=== PATIENT | female | born 1950 | race Caucasian/White ===

== ENCOUNTER 2018-12-01 12:47 | Emergency (ER) | payer MEDICARE, OTHER ==
[2018-12-01 12:58] VITALS: BMI 33.6
--- NOTE | 2018-12-01 13:54 | PDOC ---
History of Present Illness - General Chief Complaint: Headache Stated Complaint: SIU/High sugar/back pain Time Seen by Provider: 12/01/18 13:54 - History of Present Illness Initial Comments: 12/01/18 15:28 68F with h/o HTN, HLD, DM, left renal cancer s/p left nephrectomy, fibromyalgia (off librium), CO and stroke, presenting to the ED for 3 days of 10/10 frontal+ occipital headache associated with photophobia and blurry vision, generalized body pain, and dysuria. Daughter states that she also had elevated blood sugar 2 days ago (~300) down to ~138 today. The headache is not getting better with time. She took 2 Tylenol last night at 9pm because she can't have any NSAIDS due to her one kidney and her age. Patient is very agitated and is covering her eyes with a shirt. No fever, sob, abdominal pain, diarrhea or constipation. Past History - Past Medical History Allergies/Adverse Reactions: Allergies Allergy/AdvReac Type Severity Reaction Status Date / Time naproxen [From Naprosyn] Allergy Intermediate Rash Verified 12/01/18 16:52 morphine AdvReac Intermediate Vomiting Verified 12/01/18 16:52 Home Medications: Ambulatory Orders Unobtainable 12/01/18 Anemia: No Asthma: No Cancer: No Cardiac Disorders: Yes CVA: Yes (2003,2005) COPD: No CHF: No Dementia: No Diabetes: Yes GI Disorders: Yes (GERD) Disorders: No HTN: Yes Hypercholesterolemia: Yes Liver Disease: No Psychiatric Problems: Yes (ANXIETY) Seizures: No Thyroid Disease: No - Surgical History Abdominal Surgery: Yes (LT.KIDNEY REMOVAL, PT ONLY HAS 1 WORKING KIDNEY) Appendectomy: No Cardiac Surgery: No Cholecystectomy: Yes Lung Surgery: No Neurologic Surgery: No Orthopedic Surgery: No - Immunization History Immunization Up to Date: No - Suicide/Smoking/Psychosocial Hx Smoking History: Never smoked Have you smoked in the past 12 months: No Information on smoking cessation initiated: No Hx Alcohol Use: No Drug/Substance Use Hx: No Substance Use Type: None Hx Substance Use Treatment: No Review of Systems - Review of Systems Able to Perform ROS?: Yes Is the patient limited Eritrean proficient: No Constitutional: No: Symptoms Reported HEENTM: Yes: See HPI Respiratory: No: Symptoms reported Cardiac (ROS): No: Symptoms Reported ABD/GI: No: Symptoms Reported : No: Symptoms Reported Musculoskeletal: Yes: See HPI Integumentary: No: Symptoms Reported Neurological: No: Symptoms reported All Other Systems: Reviewed and Negative *Physical Exam - Vital Signs Last Vital Signs Temp Pulse Resp BP Pulse Ox 98.1 F 72 16 152/66 99 12/01/18 12:56 12/01/18 12:56 12/01/18 12:56 12/01/18 12:56 12/01/18 12:56 - Physical Exam General Appearance: Yes: Nourished, Appropriately Dressed. No: Apparent Distress HEENT: positive: EOMI, UCHE, Normal ENT Inspection Respiratory/Chest: positive: Chest Tender (mild diffuse), Lungs Clear, Normal Breath Sounds. negative: Respiratory Distress Cardiovascular: positive: Regular Rhythm, Regular Rate, S1, S2 Gastrointestinal/Abdominal: positive: Normal Bowel Sounds, Flat, Soft. negative : Tender Musculoskeletal: positive: Normal Inspection, Other (diffuse pain on palpation) Integumentary: positive: Normal Color, Dry, Warm Neurologic: positive: Fully Oriented, Alert. negative: Normal Mood/Affect ( looking very anxious ) ED Treatment Course - LABORATORY CBC & Chemistry Diagram: 12/01/18 14:20 12/01/18 14:20 Medical Decision Making - Medical Decision Making 12/01/18 16:05 68F with h/o HTN, HLD, DM, left renal cancer s/p left nephrectomy, fibromyalgia (off librium), CO and stroke, presenting to the ED for 3 days of 10/10 frontal+ occipital headache associated with photophobia and blurry vision, generalized body pain, and dysuria. Need to r/o subarachnoid bleed. If CT negative, will need to convince patient to get LP due to elevated creatine level and only one kidney to spare. Other causes of her headache can be migraine, cluster headache. Giving Tylenol and O2 oxygen. Ct head pending,. 12/01/18 17:[address] negative. Talked to patient about the need to do a lumbar puncture to fully rule out subarachnoid bleed. Patient accepted Lumbar puncture procedure. CSF obtained and running. 12/01/18 19:12 Pending CSF. Patient signed out to Dr. Pierre *DC/Admit/Observation/Transfer Diagnosis at time of Disposition: Headache - Discharge Dispostion Condition at time of disposition: Stable - Referrals Referrals: Maria Eugenia Guillory MD [Primary Care Provider] - - Patient Instructions Printed Discharge Instructions: DI for Migraine Additional Instructions: Come back to the emergency department for any new, worsening or concerning symptoms. Follow up with your primary care provider Maria Eugenia Alvarenga. - Post Discharge Activity
[2018-12-01] MEDS ORDERED: ACETAMINOPHEN 1000 MG/100 ML VIAL (NON FORMULARY) IVPB ONE (14:15)
[2018-12-01] MEDS ORDERED: ACETAMINOPHEN INJECTION 100 ML IVPB ONE (14:31)
[2018-12-01 14:54] LABS: HEMATOCRIT 37.9 % (32.4-45.2); HEMOGLOBIN 12.3 GM/dL (10.7-15.3); LYMPH % 32.9 % (8-40); MCH 26.4 pg (25.7-33.7); MCHC 32.6 g/dl (32.0-36.0); MEAN CELL VOLUME 80.9 fl (80-96); MEAN PLT VOLUME 7.2 fl (7.5-11.1); MONO % 6.5 % (3.8-10.2); NEUT % 58.6 % (42.8-82.8); PLATELET COUNT 194 K/MM3 (134-434); RBC 4.68 M/mm3 (3.60-5.2); RDW 14.6 % (11.6-15.6); WHITE BLOOD COUNT 5.2 K/mm3 (4.0-10.0)
[2018-12-01 15:00] LABS: EPI CELLS 9.4 /HPF (0-5/HPF); HYALINE CASTS 14 /lpf (0-8); PH,URINE 7.5 (5.0-8.0); URINE APPEARANCE CLEAR; URINE BACTERIA 1158.9 /hpf (NEGATIVE); URINE BILIRUBIN NEGATIVE (NEGATIVE); URINE COLOR YELLOW; URINE GLUCOSE (UA) NEGATIVE (NEGATIVE); URINE KETONE NEGATIVE (NEGATIVE); URINE LEUK ESTERASE NEGATIVE (NEGATIVE); URINE NITRITE NEGATIVE (NEGATIVE); URINE PROTEIN 1+ (NEGATIVE); URINE RBC 1 /hpf (0-4); URINE UROBILINOGEN 0.2 mg/dL (0.2-1.0); URINE WBC 4 /hpf (0-5)
[2018-12-01 15:23] LABS: ALBUMIN 3.9 g/dl (3.4-5.0); BILIRUBIN,TOTAL 0.3 mg/dL (0.2-1); BLOOD UREA NITROGEN 18.5 mg/dL (7-18); CALCIUM 9.6 mg/dL (8.5-10.1); CREATININE 1.4 mg/dL (0.55-1.3); POTASSIUM 4.5 mmol/L (3.5-5.1); TOT PROT 8.2 g/dl (6.4-8.2)
--- NOTE | 2018-12-01 15:42 | PDOC ---
Documentation entered by Poppy Benedict SCRIBE, acting as scribe for Azalea Bose MD. Azalea Bose MD: This documentation has been prepared by the Jak pierce Brenda, SCRIBE, under my direction and personally reviewed by me in its entirety. I confirm that the documentation accurately reflects all work, treatment, procedures, and medical decision making performed by me. Attending Attestation - Resident Resident Name: Carlitos Watkins - HPI HPI: 12/01/18 15:01 The patient is a 68 year old female, with a significant PMH of anxiety, hypertension, hypercholesterolemia and diabetes, who presents to the emergency department with 3 days of a strong headache. The patient states that the headache has been progressively worsening for 3 days, with no alleviation. The patient reports having an episode of vomiting yesterday after eating soup, accompanied by a subjective fever. The patient denies chest pain, shortness of breath, headache and dizziness. Denies diarrhea and constipation. Allergies: NKA Past surgical history: Cholecystectomy, Nephrectomy Social history: Non smoker PCP: Dr. Jackie Barriga - Physicial Exam PE: 12/01/18 15:01 GENERAL: +Shielding eyes from light. Awake, alert, and fully oriented. HEAD: No signs of trauma EYES: PERRLA, EOMI, sclera anicteric, conjunctiva clear ENT: Auricles normal inspection, hearing grossly normal, nares patent, oropharynx clear without exudates. Moist mucosa NECK: Normal ROM, supple, no lymphadenopathy, JVD, or masses LUNGS: Breath sounds equal, clear to auscultation bilaterally. No wheezes, and no crackles HEART: Regular rate and rhythm, normal S1 and S2, no murmurs, rubs or gallops ABDOMEN: Soft, nontender, normoactive bowel sounds. No guarding, no rebound. No masses EXTREMITIES: Normal range of motion, no edema. No clubbing or cyanosis. No cords, erythema, or tenderness NEUROLOGICAL: Cranial nerves II through XII grossly intact. Normal speech, normal gait SKIN: Warm, Dry, normal turgor, no rashes or lesions noted. - Medical Decision Making 12/01/18 15:31 Pt presents to the ED complaining of acute headache that has been persistent for the last three days. Remote history of migraines, but has not had one for many years. Given her age and the persistence of her headache, subarachnoid is in the differential. Will check CT Head and consider LP if CT is negative. 12/01/18 15:37 12/01/18 15:38
[2018-12-01] MEDS ORDERED: METOCLOPRAMIDE HCL INJECTION 10 MG/2 ML VIAL IVPUSH ONE (16:39)
[2018-12-01] MEDS ORDERED: METOCLOPRAMIDE HCL INJECTION 10 MG/2 ML VIAL ONE (17:02)
--- NOTE | 2018-12-01 17:06 | PDOC ---
*Physical Exam - Vital Signs Last Vital Signs Temp Pulse Resp BP Pulse Ox 98.1 F 72 16 152/66 99 12/01/18 12:56 12/01/18 12:56 12/01/18 12:56 12/01/18 12:56 12/01/18 12:56 ED Treatment Course - LABORATORY CBC & Chemistry Diagram: 12/01/18 14:20 12/01/18 14:20 - ADDITIONAL ORDERS Additional order review: Laboratory Results 12/01/18 12/01/18 14:20 14:20 Sodium 137 Potassium 4.5 Chloride 105 Carbon Dioxide 23 Anion Gap 9 BUN 18.5 H Creatinine 1.4 H Est GFR (CKD-EPI)AfAm 44.01 Est GFR (CKD-EPI)NonAf 37.97 Random Glucose 134 H Calcium 9.6 Total Bilirubin 0.3 AST 15 ALT 17 Alkaline Phosphatase 53 Total Protein 8.2 Albumin 3.9 Urine Color Yellow Urine Appearance Clear Urine pH 7.5 D Ur Specific [place] 1.016 Urine Protein 1+ H Urine Glucose (UA) Negative Urine Ketones Negative Urine Blood Negative Urine Nitrite Negative Urine Bilirubin Negative Urine Urobilinogen 0.2 Ur Leukocyte Esterase Negative Urine WBC (Auto) 4 Urine RBC (Auto) 1 Urine Casts (Auto) 14 U Pathogenic Cast Auto None seen U Epithel Cells (Auto) 9.4 Urine Bacteria (Auto) 1158.9 12/01/18 14:20 RBC 4.68 MCV 80.9 MCHC 32.6 RDW 14.6 MPV 7.2 L Neutrophils % 58.6 Lymphocytes % 32.9 D Monocytes % 6.5 Eosinophils % 1.0 Basophils % 1.0 - Medications Given in the ED: ED Medications Discontinued Medications Generic Name Dose Route Start Last Admin Trade Name Mansi PRN Reason Stop Dose Admin Acetaminophen 1,000 mg 12/01/18 14:15 12/01/18 14:42 Ofirmev Injection - IVPB 12/01/18 14:16 1,000 mg ONCE ONE Administration Medical Decision Making - Medical Decision Making 12/01/18 17:05 pt signed out at 5pm from Dr Bose pending reeval for headache. CT head neg for CONTRACT RECRUITER pathology. given headache, r/o SAH with LP. Cr 1.4, solitary kidney, risk of nephrotoxicity, no CTA to be done. LP with resident under my supervision. successful attempt by me, see procedure note - clear and colorless after tube 2. LP results with 200 WBC and RBC 5, not significant for SAH. no e/o infection on CSF study. lie flat for 2 hours, Given IVF to prevent spinal hypotension. glucose normal on check, able to get up and ambulate SIU improved instructions, supportive care, PCP followup and return precautions neuro followup given as well for management of SIU 12/01/18 19:41 12/01/18 19:43 12/01/18 19:43 12/01/18 20:46 *DC/Admit/Observation/Transfer Diagnosis at time of Disposition: Headache - Discharge Dispostion Disposition: HOME Condition at time of disposition: Stable Decision to Admit order: No - Referrals Referrals: Chet Scherer MD [Staff Physician] - Maria Eugenia Guillory MD [Primary Care Provider] - Eduardo Garcia MD [Staff Physician] - - Patient Instructions Printed Discharge Instructions: DI for Migraine, DI for Headache, DI for Post- Spinal Puncture Headache Additional Instructions: We have provided a referral to a neurologist. Please make an appointment for evaluation of your headaches. stay well hydrated tylenol for headache as needed Come back to the emergency department for any new, worsening or concerning symptoms. Return if worsening symptoms including fevers, headache, vomiting, visual or hearing disturbances, abdominal pain, chest pain, shortness of breath , syncope, dehydration, inability to take things by mouth/vomiting, altered mental status, or worsening concerning symptoms. Follow up with your primary care provider Maria Eugenia Guillory. neurologists referrals given as well. Hemos proporcionado peggy referencia a un neurlogo. Por favor corrine peggy lauryn para la evaluacin de denise todd de april. mantenerse abhi hidratado Tylenol para el dolor de april segn sea necesario Regrese al departamento de emergencias para detectar cualquier sntoma nuevo, que empeore o que se relacione con ellos. Regrese si los sntomas empeoran, incluyendo fiebre, dolor de april, vmitos, trastornos visuales o auditivos, dolor abdominal, dolor de pecho, falta de aliento, sncope, deshidratacin, incapacidad para nj cosas por la boca / vmitos, alteracin del estado mental o empeoramiento de los sntomas. Corrine un seguimiento con nicholson proveedor de atencin primaria Maria Eugenia Guillory. Referencias neurolgicas dadas rehan. Print Language: BENGALI - Post Discharge Activity Procedures - Lumbar Puncture Indication: Subarachnoid Hem[place]age CT Scan: Yes (negative) Betadine Prep: Yes Position: Left lateral decubitus Site: L3-L4 Local Anesthesia: 1% Lidocaine with epi Volume(ml): 5 Lumbar Puncture Kit: Adult Needle Size(gauge): 20 Traumatic Tap: Yes Tubes Obtained: 4 Clear Fluid: Yes Complications: No Progress: 12/01/18 18:39 attempts by residents x 2, unsuccessful first attempt by me successful, uncomplicated. clear csf by tube 2, 3,4
[2018-12-01 19:34] LABS: CSF APPEARANCE CLEAR; CSF COLOR COLORLESS; CSF WBC 200
[2018-12-01] MEDS ORDERED: SODIUM CHLORIDE 0.9% 500 ML INFUS.BAG IV ONE (19:38)
[2018-12-01 20:02] LABS: BF GLUCOSE (CSF ONLY) 61 mg/dL (40-70)
--- NOTE | 2018-12-01 20:26 | PDOC ---
*Physical Exam - Vital Signs Last Vital Signs Temp Pulse Resp BP Pulse Ox 98.1 F 67 16 142/81 96 12/01/18 18:32 12/01/18 18:32 12/01/18 12:56 12/01/18 18:32 12/01/18 18:37 - Physical Exam Comments: 12/01/18 20:24 General Appearance: Yes: Nourished, Appropriately Dressed HEENT: positive: Normal Voice, Hearing Grossly Normal Neck: positive: Trachea midline, Supple Respiratory/Chest: positive: Lungs Clear, Normal Breath Sounds Cardiovascular: positive: S1, S2, Systolic Murmur Gastrointestinal/Abdominal: positive: Normal Bowel Sounds, Soft Extremity: positive: Normal Capillary Refill, Normal Inspection Integumentary: positive: Normal Color, Dry, Warm Neurologic: positive: Fully Oriented, Alert. negative: Confused, Disoriented ED Treatment Course - LABORATORY CBC & Chemistry Diagram: 12/01/18 14:20 12/01/18 14:20 - ADDITIONAL ORDERS Additional order review: Laboratory Results 12/01/18 12/01/18 12/01/18 18:30 14:20 14:20 Sodium 137 Potassium 4.5 Chloride 105 Carbon Dioxide 23 Anion Gap 9 BUN 18.5 H Creatinine 1.4 H Est GFR (CKD-EPI)AfAm 44.01 Est GFR (CKD-EPI)NonAf 37.97 Random Glucose 134 H Calcium 9.6 Total Bilirubin 0.3 AST 15 ALT 17 Alkaline Phosphatase 53 Total Protein 8.2 Albumin 3.9 Urine Color Yellow Urine Appearance Clear Urine pH 7.5 D Ur Specific [place] 1.016 Urine Protein 1+ H Urine Glucose (UA) Negative Urine Ketones Negative Urine Blood Negative Urine Nitrite Negative Urine Bilirubin Negative Urine Urobilinogen 0.2 Ur Leukocyte Esterase Negative Urine WBC (Auto) 4 Urine RBC (Auto) 1 Urine Casts (Auto) 14 U Pathogenic Cast Auto None seen U Epithel Cells (Auto) 9.4 Urine Bacteria (Auto) 1158.9 CSF Appearance Clear CSF Color Colorless CSF WBC 200 CSF RBC 5 CSF Neutrophils 0 CSF Lymphocytes 100 CSF Eosinophils No Result Required. CSF Basophils No Result Required. CSF Macrophages No Result Required. CSF Plasma Cells No Result Required. CSF Diff Comment No Result Required. CSF Comment CSF Glucose 61 CSF Total Protein 111 H 12/01/18 14:20 RBC 4.68 MCV 80.9 MCHC 32.6 RDW 14.6 MPV 7.2 L Neutrophils % 58.6 Lymphocytes % 32.9 D Monocytes % 6.5 Eosinophils % 1.0 Basophils % 1.0 - Medications Given in the ED: ED Medications Discontinued Medications Generic Name Dose Route Start Last Admin Trade Name Mansi PRN Reason Stop Dose Admin Acetaminophen 1,000 mg 12/01/18 14:15 12/01/18 14:42 Ofirmev Injection - IVPB 12/01/18 14:16 1,000 mg ONCE ONE Administration Metoclopramide HCl 10 mg 12/01/18 16:39 12/01/18 17:09 Reglan Injection - IVPUSH 12/01/18 16:40 10 mg ONCE ONE Administration Sodium Chloride 1,000 ml 12/01/18 19:38 12/01/18 20:16 Normal Saline - IV 12/01/18 19:39 1,000 ml ONCE ONE Administration Medical Decision Making - Medical Decision Making 12/01/18 20:27 Patient signed out by Dr. 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 Remote h/o migraines Head CT negative, LP for SAH - results pending. Patient reassessed @ bedside, symptomatically improved s/p headache cocktail IV fluids, supine s/p LP 12/01/18 20:39 LP 5 RBC, 200 WBC - unlikely SAH Patient to be discharged home with supportive care and referral to neurology for evaluation of headaches. Clinical Impression: SIU, possibly migraine I discussed the physical exam findings, ancillary test results and final diagnoses with the patient. I answered all of the patient's questions. The patient was satisfied with the care received and felt comfortable with the discharge plan and treatment plan. The patient will return to the Emergency Department with any new, persistent or worsening symptoms. *DC/Admit/Observation/Transfer Diagnosis at time of Disposition: Headache - Discharge Dispostion Disposition: HOME Condition at time of disposition: Improved - Referrals Referrals: Eduardo Garcia MD [Staff Physician] - Chet Scherer MD [Staff Physician] - Maria Eugenia Guillory MD [Primary Care Provider] - - Patient Instructions Printed Discharge Instructions: DI for Migraine, DI for Post-Spinal Puncture Headache, DI for Headache Additional Instructions: Hemos proporcionado peggy referencia a un neurlogo o puede llamar a guzmán compaa de seguros para obtener peggy lista de mdicos. Por favor cody peggy lauryn para evaluar denise todd de april dentro de la prxima semana. Por favor cody un seguimiento con guzmán mdico de atencin primaria en los prximos 3 reis. Guzmán atencin no est completa hasta que lo evale un neurlogo y guzmán mdico de atencin primaria. Puede nj Motrin (hasta 3200 mg al da) cada 4-6 horas para el dolor de april radha la prxima semana Regrese al Departamento de Emergencias para cualquier sntoma nuevo / que empeora / relacionado. We have provided a referral to a neurologist or you can call your insurance company for a list of doctors. Please make an appointment for evaluation of your headaches within the next one week. Please follow-up with your primary care doctor in the next 3 days. Your care is not complete until you are evaluated by a neurologist and your primary care doctor. You can take Motrin (up to 3200 mg daily) every 4-6 hours for your headache for the next 1 week Return to the Emergency Department for any new/worsening/concerning symptoms. Print Language: TURKMEN - Post Discharge Activity
[2018-12-01 21:25] VITALS: TEMP 98.4
[2018-12-01 21:26] VITALS: BP 128/83; PULSE 73
--- NOTE | 2018-12-02 08:07 | EKG ---
Test Reason : Blood Pressure : / mmHG Vent. Rate : 062 BPM Atrial Rate : 062 BPM P-R Int : 172 ms QRS Dur : 082 ms QT Int : 446 ms P-R-T Axes : 050 -17 017 degrees QTc Int : 452 ms POOR DATA QUALITY, INTERPRETATION MAY BE ADVERSELY AFFECTED NORMAL SINUS RHYTHM POSSIBLE LEFT ATRIAL ENLARGEMENT LEFT VENTRICULAR HYPERTROPHY ABNORMAL ECG WHEN COMPARED WITH ECG OF 28-JAN-2015 15:41, NO SIGNIFICANT CHANGE WAS FOUND Confirmed by FLOR BURRIS MD ([id number]) on 12/02/2018 8:07:06 AM Referred By: Confirmed By:FLOR BURRIS MD
== END 2018-12-01 21:26 | disposition home or self-care (01) ==
LOC: JER 12:47
PROC: 009U3ZX Drainage of Spinal Canal, Percutaneous Approach, Diagnostic (ICD-10-PCS; principal; 2018-12-01)
PROC: 3E033NZ Introduction of Analgesics, Hypnotics, Sedatives into Peripheral Vein, Percutaneous Approach (ICD-10-PCS; 2018-12-01)
PROC: 3E033GC Introduction of Other Therapeutic Substance into Peripheral Vein, Percutaneous Approach (ICD-10-PCS; 2018-12-01)
DX: R51 Headache (principal); I25.10 Atherosclerotic heart disease of native coronary artery without angina pectoris; I11.0 Hypertensive heart disease with heart failure; I25.2 Old myocardial infarction; E11.9 Type 2 diabetes mellitus without complications; E78.5 Hyperlipidemia, unspecified; F41.9 Anxiety disorder, unspecified; Z86.73 Personal history of transient ischemic attack (TIA), and cerebral infarction without residual deficits; Z85.520 Personal history of malignant carcinoid tumor of kidney; Z90.5 Acquired absence of kidney
CPT/HCPCS: 36415; 62270; 70450-TC; 80053; 81003; 82945; 82962; 84157; 85025; 87070; 87086; 87205; 93005; 93010; 96374; 96375; 99283-25; J0131

== ENCOUNTER 2023-04-02 13:36 | Emergency (ER) | payer MEDICARE, OTHER ==
[2023-04-02 13:59] VITALS: BMI 31.1
[2023-04-02] MEDS ORDERED: DEXAMETHASONE SOD PHOSPHATE 10 MG/1 ML VIAL IM ONE (16:12)
[2023-04-02] MEDS ORDERED: ACETAMINOPHEN 500 MG TABLET (FP) PO ONE (16:12)
[2023-04-02] MEDS ORDERED: KETOROLAC TROMETHAMINE 15 MG/ML VIAL IM ONE (16:12)
[2023-04-02] MEDS ORDERED: ACETAMINOPHEN 500 MG TABLET (FP) ONE (16:23)
[2023-04-02] MEDS ORDERED: DEXAMETHASONE SOD PHOSPHATE 10 MG/1 ML VIAL ONE (16:23)
[2023-04-02 17:00] VITALS: BP 137/71; PULSE 66; RESP 20; TEMP 98.5
== END 2023-04-02 17:01 | disposition home or self-care (01) ==
LOC: JER 13:36
PROC: 3E023GC Introduction of Other Therapeutic Substance into Muscle, Percutaneous Approach (ICD-10-PCS; principal; 2023-04-02)
DX: M25.511 Pain in right shoulder (principal); M25.512 Pain in left shoulder; M25.521 Pain in right elbow; M25.522 Pain in left elbow; M06.9 Rheumatoid arthritis, unspecified
CPT/HCPCS: 82962; 99284-25; J1100

== ENCOUNTER 2023-07-03 09:37 | Observation (INO) | payer MEDICARE, OTHER ==
[2023-07-03 11:42] LABS: BASO % 0.8 % (0-2.0); HEMATOCRIT 35.2 % (32.4-45.2); LYMPH % 30.8 % (8-40); MCH 27.8 pg (25.7-33.7); MEAN CELL VOLUME 81.7 fl (80-96); MEAN PLT VOLUME 7.4 fl (7.5-11.1); MONO % 6.6 % (3.8-10.2); NEUT % 59.8 % (42.8-82.8); PLATELET COUNT 186 10^3/uL (134-434); RBC 4.31 M/mm3 (3.60-5.2); RDW 14.4 % (11.6-15.6); WHITE BLOOD COUNT 5.1 K/mm3 (4.0-10.0)
[2023-07-03 12:16] LABS: ALBUMIN 3.4 g/dl (3.4-5.0); BLOOD UREA NITROGEN 26.9 mg/dL (7-18); CALCIUM 9.6 mg/dL (8.5-10.1); MAGNESIUM 2.3 mg/dL (1.8-2.4); POTASSIUM 5.1 mmol/L (3.5-5.1)
[2023-07-03 12:18] LABS: CREATININE 1.6 mg/dL (0.55-1.3)
[2023-07-03 12:20] LABS: BILIRUBIN,TOTAL 0.3 mg/dL (0.2-1); TOT PROT 7.9 g/dl (6.4-8.2)
[2023-07-03 12:23] LABS: EPI CELLS 27 /uL (0-25.1); HYALINE CASTS 1 /uL (0-3.1); PH,URINE 5.5 (5.0-8.0); URINE APPEARANCE CLEAR; URINE BACTERIA 740 /uL (0-1359); URINE BILIRUBIN NEGATIVE (NEGATIVE); URINE COLOR YELLOW; URINE GLUCOSE (UA) NEGATIVE (NEGATIVE); URINE KETONE NEGATIVE (NEGATIVE); URINE LEUK ESTERASE TRACE (NEGATIVE); URINE NITRITE NEGATIVE (NEGATIVE); URINE PROTEIN NEGATIVE (NEGATIVE); URINE RBC 7 /uL (0-23.9); URINE WBC 30 /uL (0-25.8)
[2023-07-03 14:20] VITALS: BMI 32.2
[2023-07-04 09:16] LABS: BASO % 0.6 % (0-2.0); EOS % 2.2 % (0-4.5); HEMATOCRIT 36.5 % (32.4-45.2); HEMOGLOBIN 11.9 GM/dL (10.7-15.3); LYMPH % 35.3 % (8-40); MCHC 32.5 g/dl (32.0-36.0); MEAN PLT VOLUME 7.7 fl (7.5-11.1); MONO % 5.7 % (3.8-10.2); NEUT % 56.2 % (42.8-82.8); PLATELET COUNT 194 10^3/uL (134-434); RDW 14.5 % (11.6-15.6); WHITE BLOOD COUNT 5.6 K/mm3 (4.0-10.0)
[2023-07-04 09:21] LABS: POTASSIUM 4.3 mmol/L (3.5-5.1)
[2023-07-04 09:35] LABS: CALCIUM 8.6 mg/dL (8.5-10.1)
[2023-07-04 09:36] LABS: BLOOD UREA NITROGEN 27.8 mg/dL (7-18)
[2023-07-04 09:38] LABS: MAGNESIUM 2.1 mg/dL (1.8-2.4)
[2023-07-04 09:41] LABS: CREATININE 1.5 mg/dL (0.55-1.3); PHOSPHOROUS 3.5 mg/dL (2.5-4.9)
[2023-07-04 09:42] LABS: BILIRUBIN,TOTAL 0.3 mg/dL (0.2-1)
[2023-07-04 09:50] LABS: ALBUMIN 3.5 g/dl (3.4-5.0)
[2023-07-04 16:10] VITALS: BP 148/68; PULSE 64; RESP 18; TEMP 98
== END 2023-07-04 16:38 | disposition home or self-care (01) ==
LOC: JER 09:37 → JERBED 14:56 → INTOOBSV 14:56 → UNDOADMOB 14:56 → J5S 07-04 01:17 → JERBED 07-04 01:17 → J5S 07-04 10:08 → JERBED 07-04 10:08
PROVIDERS: ADMIT Internal Medicine; ATTEND Internal Medicine
DX: R76.8 Other specified abnormal immunological findings in serum (principal); K21.9 Gastro-esophageal reflux disease without esophagitis; Z90.49 Acquired absence of other specified parts of digestive tract; Z90.5 Acquired absence of kidney; E78.5 Hyperlipidemia, unspecified; E11.9 Type 2 diabetes mellitus without complications; M79.7 Fibromyalgia; I10 Essential (primary) hypertension; Z99.81 Dependence on supplemental oxygen; M06.9 Rheumatoid arthritis, unspecified; R91.1 Solitary pulmonary nodule; N17.9 Acute kidney failure, unspecified; Z88.5 Allergy status to narcotic agent
CPT/HCPCS: 36415; 71045-TC-FY; 71250-TC; 76775-TC; 80053; 81003; 82962; 83520; 83735; 84100; 85025; 86256; 87086; 93005; 93010; 99285-25; G0378

== ENCOUNTER 2024-05-09 12:54 | Observation (INO) | payer OTHER ==
[2024-05-09 13:13] VITALS: BMI 31.2
[2024-05-09] MEDS ORDERED: ACETAMINOPHEN INJECTION 100 ML ONE (14:14)
[2024-05-09] MEDS: ACETAMINOPHEN 1000 MG/100 ML BAG IVPB ONE (14:18)
[2024-05-09 14:21] LABS: BASO % 0.6 % (0-2.0); EOS % 1.4 % (0-4.5); HEMATOCRIT 38.8 % (32.4-45.2); HEMOGLOBIN 12.7 GM/dL (10.7-15.3); MCH 26.3 pg (25.7-33.7); MCHC 32.7 g/dl (32.0-36.0); MEAN CELL VOLUME 80.4 fl (80-96); MEAN PLT VOLUME 7.5 fl (7.5-11.1); MONO % 4.1 % (3.8-10.2); NEUT % 74.9 % (42.8-82.8); PLATELET COUNT 205 10^3/uL (134-434); RBC 4.83 M/mm3 (3.60-5.2); RDW 15.1 % (11.6-15.6); WHITE BLOOD COUNT 6.7 K/mm3 (4.0-10.0)
[2024-05-09 14:38] LABS: POTASSIUM 4.3 mmol/L (3.5-5.1)
[2024-05-09 14:39] LABS: CALCIUM 9.9 mg/dL (8.5-10.1)
[2024-05-09 14:40] LABS: ALBUMIN 3.7 g/dl (3.4-5.0); BLOOD UREA NITROGEN 30.3 mg/dL (7-18)
[2024-05-09 14:43] LABS: CREATININE 1.7 mg/dL (0.55-1.3)
[2024-05-09 14:45] LABS: BILIRUBIN,TOTAL 0.4 mg/dL (0.2-1); TOT PROT 8.4 g/dl (6.4-8.2)
[2024-05-09 14:57] LABS: ERYTHROCYTE SEDIMENTATION RATE 64 mm/hr (0-30)
[2024-05-09 15:35] LABS: HIV INTERPRETATION NEGATIVE (NEGATIVE)
[2024-05-09] MEDS: ASPIRIN 325 MG TABLET PO ONE (18:34)
[2024-05-09] MEDS: ALPRAZolam 1 MG TABLET PO PRN (19:00)
[2024-05-09] MEDS: INSULIN ASPART SLIDING SCALE (NOVOLOG) 1 VIAL SQ SCH (19:05)
[2024-05-09] MEDS: SODIUM CHLORIDE 1,000 ML IV SCH (19:40)
[2024-05-09] MEDS: ATORVASTATIN CA 20 MG TABLET (FP) PO SCH (21:49)
[2024-05-09] MEDS: HEPARIN NA (PORCINE) 5,000 UNITS/ML 1ML VIAL SQ SCH (21:49)
[2024-05-09] MEDS: ACETAMINOPHEN 1000 MG/100 ML BAG IVPB PRN (21:49)
[2024-05-09] MEDS: INSULIN (LEVEMIR) 100 UNITS/ML UNITS SQ SCH (21:50)
[2024-05-10 02:22] VITALS: RESP 18
[2024-05-10] MEDS: LEVOTHYROXINE NA 50 MCG TABLET (FP) PO SCH (06:19)
[2024-05-10 06:30] LABS: BASO % 0.6 % (0-2.0); EOS % 2.7 % (0-4.5); HEMATOCRIT 39.2 % (32.4-45.2); HEMOGLOBIN 12.6 GM/dL (10.7-15.3); LYMPH % 36.6 % (8-40); MCH 26.5 pg (25.7-33.7); MCHC 32.1 g/dl (32.0-36.0); MEAN CELL VOLUME 82.6 fl (80-96); MEAN PLT VOLUME 7.8 fl (7.5-11.1); MONO % 6.4 % (3.8-10.2); NEUT % 53.7 % (42.8-82.8); PLATELET COUNT 220 10^3/uL (134-434); RBC 4.75 M/mm3 (3.60-5.2); RDW 15.3 % (11.6-15.6); WHITE BLOOD COUNT 6.4 K/mm3 (4.0-10.0)
[2024-05-10 06:39] LABS: POTASSIUM 4.1 mmol/L (3.5-5.1)
[2024-05-10 06:42] LABS: ALBUMIN 3.6 g/dl (3.4-5.0); CALCIUM 9.3 mg/dL (8.5-10.1)
[2024-05-10 06:43] LABS: BLOOD UREA NITROGEN 28.6 mg/dL (7-18)
[2024-05-10 06:46] LABS: CREATININE 1.6 mg/dL (0.55-1.3)
[2024-05-10 06:47] LABS: BILIRUBIN,TOTAL 0.7 mg/dL (0.2-1); TOT PROT 8.1 g/dl (6.4-8.2)
[2024-05-10 10:26] VITALS: TEMP 97.7
[2024-05-10] MEDS: NEBIVOLOL 5 MG TABLET (FP) PO SCH (10:32)
[2024-05-10] MEDS: ASPIRIN COATED 81 MG TABLET.EC PO SCH (10:33)
[2024-05-10] MEDS: SERTRALINE HCL 50 MG TABLET (FP) PO SCH (10:33)
[2024-05-10] MEDS: PANTOPRAZOLE 20 MG TABLET PO SCH (10:33)
[2024-05-10 14:01] VITALS: BP 142/87; PULSE 70
== END 2024-05-10 18:31 | disposition home or self-care (01) ==
LOC: JER 12:54 → JERBED 15:46 → J4S 17:50
PROVIDERS: ADMIT Internal Medicine; ATTEND Internal Medicine
PROC: 3E033NZ Introduction of Analgesics, Hypnotics, Sedatives into Peripheral Vein, Percutaneous Approach (ICD-10-PCS; principal; 2024-05-09)
PROC: 3E013VG Introduction of Insulin into Subcutaneous Tissue, Percutaneous Approach (ICD-10-PCS; 2024-05-09)
DX: M79.7 Fibromyalgia (principal); I12.9 Hypertensive chronic kidney disease with stage 1 through stage 4 chronic kidney disease, or unspecified chronic kidney disease; I45.10 Unspecified right bundle-branch block; E11.22 Type 2 diabetes mellitus with diabetic chronic kidney disease; K52.9 Noninfective gastroenteritis and colitis, unspecified; R07.89 Other chest pain; E78.5 Hyperlipidemia, unspecified; R91.1 Solitary pulmonary nodule; N17.9 Acute kidney failure, unspecified; R94.31 Abnormal electrocardiogram [ECG] [EKG]; R79.89 Other specified abnormal findings of blood chemistry; M19.90 Unspecified osteoarthritis, unspecified site; Z90.49 Acquired absence of other specified parts of digestive tract; Z88.8 Allergy status to other drugs, medicaments and biological substances; Z88.5 Allergy status to narcotic agent; Z90.5 Acquired absence of kidney
CPT/HCPCS: 36415; 70450-TC; 71045-TC-FY; 80053; 82550; 82962; 84443; 84484; 85025; 85379; 85651; 86140; 86803; 87040; 87389; 93005; 93010; 96361; 96372; 96374; 96376; 99285-25; G0378; J0131; J1644

== ENCOUNTER 2024-11-19 13:07 | Observation (INO) | payer OTHER ==
[2024-11-19] MEDS ORDERED: ASPIRIN 325 MG TABLET ONE (13:36)
[2024-11-19] MEDS ORDERED: ACETAMINOPHEN INJECTION 100 ML ONE (13:36)
[2024-11-19] MEDS: ACETAMINOPHEN 1000 MG/100 ML BAG IVPB ONE (13:47)
[2024-11-19] MEDS: ASPIRIN 325 MG TABLET PO ONE (13:47)
[2024-11-19 13:51] LABS: ABSOLUTE IMMATURE GRANULOCYTES 0.03 x10^3/uL (0.0-0.031); BASOPHILS # 0.01 x10^3/uL (0.01-0.08); EOSINOPHILS # 0.07 x10^3/uL (0.04-0.36); HEMATOCRIT 39.5 % (34.1-44.9); HEMOGLOBIN 12.3 g/dL (11.2-15.7); MCHC 31.1 g/dl (32.2-35.5); MEAN CELL VOLUME 81.1 fl (79.4-94.8); MEAN PLT VOLUME 9.2 fl (9.4-12.3); MONOCYTE # 0.34 x10^3/uL (0.24-0.86); MONOCYTE % 4.8 % (4.7-12.5); PLATELET COUNT 240 x10^3/uL (182-369); RDW 15.2 % (12.4-16.6)
[2024-11-19 13:58] LABS: INR 1.4 (0.83-1.09); PROTHROMBIN TIME (PATIENT) 15.4 SEC (9.7-13.0)
[2024-11-19 14:01] LABS: ACTIVATED PTT 34.8 SECONDS (25.2-36.5)
[2024-11-19 14:21] LABS: POTASSIUM 4.5 mmol/L (3.5-5.1)
[2024-11-19 14:23] LABS: ALBUMIN 3.4 g/dl (3.4-5.0); BLOOD UREA NITROGEN 20.5 mg/dL (7-18); CALCIUM 9.3 mg/dL (8.5-10.1)
[2024-11-19 14:27] LABS: CREATININE 1.4 mg/dL (0.55-1.3)
[2024-11-19 14:28] LABS: BILIRUBIN,TOTAL 0.6 mg/dL (0.2-1); TOT PROT 8.4 g/dl (6.4-8.2)
[2024-11-19] MEDS: SODIUM CHLORIDE 0.9% 500 ML INFUS.BAG IV ONE (14:48)
[2024-11-19 22:24] VITALS: RESP 19; BMI 32.0
[2024-11-19] MEDS: APIXABAN 5 MG TABLET PO SCH (22:56)
[2024-11-20] MEDS: ACETAMINOPHEN 1000 MG/100 ML BAG IVPB PRN (03:26)
[2024-11-20] MEDS: LEVOTHYROXINE NA 75 MCG TABLET (FP) PO SCH (06:11)
[2024-11-20] MEDS ORDERED: LEVOTHYROXINE NA 50 MCG TABLET (FP) PO SCH (07:00)
[2024-11-20 08:40] LABS: ABSOLUTE IMMATURE GRANULOCYTES 0.02 x10^3/uL (0.0-0.031); BASOPHILS # 0.02 x10^3/uL (0.01-0.08); EOSINOPHIL % 1.3 % (0.7-5.8); EOSINOPHILS # 0.09 x10^3/uL (0.04-0.36); HEMATOCRIT 40.5 % (34.1-44.9); HEMOGLOBIN 12.3 g/dL (11.2-15.7); MCHC 30.4 g/dl (32.2-35.5); MEAN CELL VOLUME 82.2 fl (79.4-94.8); MONOCYTE # 0.33 x10^3/uL (0.24-0.86); MONOCYTE % 4.7 % (4.7-12.5); RDW 15.4 % (12.4-16.6)
[2024-11-20] MEDS: PANTOPRAZOLE 40 MG TABLET PO SCH (09:35)
[2024-11-20] MEDS: GABAPENTIN 300 MG CAPSULE PO SCH (09:35)
[2024-11-20] MEDS: SERTRALINE HCL 50 MG TABLET (FP) PO SCH (09:35)
[2024-11-20] MEDS: NEBIVOLOL 5 MG TABLET (FP) PO SCH (09:35)
[2024-11-20 11:18] LABS: ALBUMIN 3.3 g/dl (3.4-5.0); BILIRUBIN,TOTAL 0.8 mg/dL (0.2-1); BLOOD UREA NITROGEN 18.7 mg/dL (7-18); CALCIUM 9.4 mg/dL (8.5-10.1); CREATININE 1.1 mg/dL (0.55-1.3); POTASSIUM 4.1 mmol/L (3.5-5.1); TOT PROT 8.2 g/dl (6.4-8.2)
[2024-11-20 15:26] VITALS: BP 136/73; PULSE 69; TEMP 98.1
[2024-11-20 16:54] LABS: N-TERMINAL BNP 383.8 pg/ml (5-450)
[2024-11-20] MEDS ORDERED: ATORVASTATIN CA 20 MG TABLET (FP) PO SCH ×2 (22:00)
== END 2024-11-20 16:52 | disposition home or self-care (01) ==
LOC: JER 13:07 → JERBED 20:28 → J4W 21:51
PROVIDERS: ADMIT Internal Medicine; ATTEND Internal Medicine
PROC: 3E033NZ Introduction of Analgesics, Hypnotics, Sedatives into Peripheral Vein, Percutaneous Approach (ICD-10-PCS; principal; 2024-11-19)
PROC: 3E0337Z Introduction of Electrolytic and Water Balance Substance into Peripheral Vein, Percutaneous Approach (ICD-10-PCS; 2024-11-19)
DX: N18.9 Chronic kidney disease, unspecified (principal); I12.9 Hypertensive chronic kidney disease with stage 1 through stage 4 chronic kidney disease, or unspecified chronic kidney disease; I31.39 Other pericardial effusion (noninflammatory); K21.9 Gastro-esophageal reflux disease without esophagitis; E11.22 Type 2 diabetes mellitus with diabetic chronic kidney disease; Z86.711 Personal history of pulmonary embolism; R42 Dizziness and giddiness; F41.9 Anxiety disorder, unspecified; M79.7 Fibromyalgia; E78.5 Hyperlipidemia, unspecified; R07.1 Chest pain on breathing; Z90.5 Acquired absence of kidney; M06.9 Rheumatoid arthritis, unspecified; M19.90 Unspecified osteoarthritis, unspecified site
CPT/HCPCS: 36415; 70450-TC; 71045-TC-FY; 71275-TC; 80053; 80061; 82962; 83036; 83735; 83880; 84443; 84484; 85025; 85610; 85730; 86850; 86900; 86901; 93005; 93010; 96374; 96376; 99285-25; G0378

== ENCOUNTER 2024-11-24 17:50 | Inpatient (IN) | payer OTHER ==
[2024-11-24] MEDS ORDERED: ACETAMINOPHEN INJECTION 100 ML ONE (18:37)
[2024-11-24] MEDS: ACETAMINOPHEN 1000 MG/100 ML BAG IVPB ONE (18:55)
[2024-11-24] MEDS: LACTATED RINGERS SOLUTION 1000 ML INFUS.BAG IV ONE (19:06)
[2024-11-24 19:09] LABS: VENOUS BASE EXCESS -3.6 mmol/L (-2-2); VENOUS O2 SATURATION 45.5 % (70-80); VENOUS PCO2 41.5 mmHg (38-52); VENOUS PH 7.341 (7.310-7.410)
[2024-11-24 19:10] LABS: ABSOLUTE IMMATURE GRANULOCYTES 0.04 x10^3/uL (0.0-0.031); BASOPHILS # 0.02 x10^3/uL (0.01-0.08); EOSINOPHIL % 0.2 % (0.7-5.8); EOSINOPHILS # 0.02 x10^3/uL (0.04-0.36); HEMATOCRIT 35.6 % (34.1-44.9); HEMOGLOBIN 10.9 g/dL (11.2-15.7); MCHC 30.6 g/dl (32.2-35.5); MEAN CELL VOLUME 80.5 fl (79.4-94.8); MEAN PLT VOLUME 9.5 fl (9.4-12.3); MONOCYTE % 5.9 % (4.7-12.5); PLATELET COUNT 292 x10^3/uL (182-369); RDW 14.9 % (12.4-16.6)
[2024-11-24 19:24] LABS: INR 1.5 (0.83-1.09); PROTHROMBIN TIME (PATIENT) 16.3 SEC (9.7-13.0)
[2024-11-24 19:27] LABS: ACTIVATED PTT 35.5 SECONDS (25.2-36.5); POTASSIUM 4.7 mmol/L (3.5-5.1)
[2024-11-24 19:29] LABS: ALBUMIN 2.9 g/dl (3.4-5.0); BLOOD UREA NITROGEN 18.3 mg/dL (7-18); CALCIUM 9.3 mg/dL (8.5-10.1)
[2024-11-24 19:32] LABS: CREATININE 1.7 mg/dL (0.55-1.3)
[2024-11-24 19:34] LABS: BILIRUBIN,TOTAL 0.6 mg/dL (0.2-1)
[2024-11-24] MEDS ORDERED: PIPERACILLIN/TAZOB 3.375 GM 3.375 GM/50 ML BAG IVPB ONE (20:24)
[2024-11-24] MEDS: CEFTRIAXONE 1,000 MG in DEXTROSE 5%-WATER - 50 ML IVPB ONE (20:25)
[2024-11-24] MEDS: PIPERACILLIN/TAZOB 4.5 GM 4.5 GM in DEXTROSE 5%-WATER 100 ML IVPB ONE (20:27)
[2024-11-24] MEDS ORDERED: AZITHROMYCIN IVPB 500 MG/250 ML BAG IVPB ONE (20:32)
[2024-11-24] MEDS ORDERED: CEFEPIME HCL/D5W 1 GM/50 ML BAG IVPB ONE (20:32)
[2024-11-24] MEDS: CEFEPIME HCL 1 GM VIAL (RESTRICTED TO ID) IVPB ONE (20:50)
[2024-11-24 21:06] LABS: N-TERMINAL BNP 1049.9 pg/ml (5-450)
[2024-11-24] MEDS: AZITHROMYCIN IVPB 500 MG in DEXTROSE 5%-WATER - 250 ML IVPB ONE (21:27)
[2024-11-24] MEDS ORDERED: DOCUSATE SODIUM 100 MG CAPSULE (FP) PO PRN (21:37)
[2024-11-24] MEDS: ATORVASTATIN CA 10 MG TABLET (FP) PO SCH (22:01)
[2024-11-24] MEDS ORDERED: ATORVASTATIN CA 10 MG TABLET (FP) ONE (22:01)
[2024-11-24] MEDS ORDERED: APIXABAN 5 MG TABLET ONE (22:59)
[2024-11-24] MEDS: APIXABAN 5 MG TABLET PO SCH (23:02)
[2024-11-25] MEDS: FUROSEMIDE 40 MG/4 ML INJECTABLE VIAL IVPUSH ONE ×2 (03:01→03:17)
[2024-11-25 05:51] LABS: PH,URINE 5.5 (5.0-8.0); URINE APPEARANCE CLEAR; URINE BILIRUBIN NEGATIVE (NEGATIVE); URINE COLOR YELLOW; URINE GLUCOSE (UA) NEGATIVE (NEGATIVE); URINE KETONE NEGATIVE (NEGATIVE); URINE LEUK ESTERASE NEGATIVE (NEGATIVE); URINE NITRITE NEGATIVE (NEGATIVE); URINE PROTEIN TRACE (NEGATIVE); URINE UROBILINOGEN 0.2 mg/dL (0.2-1.0)
[2024-11-25 06:39] LABS: HEMATOCRIT 31.9 % (34.1-44.9); HEMOGLOBIN 9.7 g/dL (11.2-15.7); MCHC 30.4 g/dl (32.2-35.5); MEAN CELL VOLUME 82.9 fl (79.4-94.8); MEAN PLT VOLUME 10.4 fl (9.4-12.3); PLATELET COUNT 240 x10^3/uL (182-369); RDW 15.1 % (12.4-16.6)
[2024-11-25 07:02] LABS: POTASSIUM 3.8 mmol/L (3.5-5.1)
[2024-11-25 07:14] LABS: BLOOD UREA NITROGEN 19.5 mg/dL (7-18); CALCIUM 8.8 mg/dL (8.5-10.1)
[2024-11-25 07:17] LABS: CREATININE 1.5 mg/dL (0.55-1.3)
[2024-11-25 07:18] LABS: PHOSPHOROUS 3.6 mg/dL (2.5-4.9)
[2024-11-25] MEDS: INSULIN ASPART SLIDING SCALE (NOVOLOG) 1 VIAL SQ SCH (08:04)
[2024-11-25] MEDS: LEVOTHYROXINE NA 75 MCG TABLET (FP) PO SCH (08:08)
[2024-11-25] MEDS ORDERED: AZITHROMYCIN IVPB 500 MG/250 ML BAG IVPB SCH (10:00)
[2024-11-25] MEDS ORDERED: CEFEPIME HCL 1 GM VIAL (RESTRICTED TO ID) IVPB SCH (10:00)
[2024-11-25] MEDS: AZITHROMYCIN IVPB 500 MG/250 ML BAG IVPB SCH (10:11)
[2024-11-25] MEDS: SERTRALINE HCL 50 MG TABLET (FP) PO SCH (10:11)
[2024-11-25] MEDS: CEFEPIME 1 GM in DEXTROSE 5%-WATER 100 ML IVPB SCH (11:03)
[2024-11-25] MEDS: CEFEPIME HCL 1 GM VIAL (RESTRICTED TO ID) IVPB SCH (14:38)
[2024-11-25] MEDS: ACETAMINOPHEN 325 MG TABLET (FP) PO PRN (15:20)
[2024-11-25 15:28] VITALS: BMI 32.5
[2024-11-25] MEDS: ALPRAZolam 1 MG TABLET PO PRN (21:33)
[2024-11-26 06:39] VITALS: RESP 18
[2024-11-26] MEDS: CEFTRIAXONE 1 GM in DEXTROSE 5%-WATER - 50 ML IVPB SCH (09:29)
[2024-11-26 14:45] VITALS: BP 130/75; PULSE 76; TEMP 98.2
[2024-11-26] MEDS: PNEUMOC 20-VAL CONJ-DIP CRM/PF 0.5 ML SYRINGE IM ONE (16:32)
== END 2024-11-26 17:21 | disposition home or self-care (01) | DRG 313 ==
LOC: JER 17:50 → JERBED 20:52 → OBSVTOIN 21:29 → J4W 11-25 00:28
PROVIDERS: ADMIT Hospitalist; ATTEND Internal Medicine
DX: R07.89 Other chest pain (principal); I12.9 Hypertensive chronic kidney disease with stage 1 through stage 4 chronic kidney disease, or unspecified chronic kidney disease; E11.22 Type 2 diabetes mellitus with diabetic chronic kidney disease; N18.9 Chronic kidney disease, unspecified; M79.7 Fibromyalgia; I27.20 Pulmonary hypertension, unspecified; E11.40 Type 2 diabetes mellitus with diabetic neuropathy, unspecified; E78.5 Hyperlipidemia, unspecified; K21.9 Gastro-esophageal reflux disease without esophagitis; I45.10 Unspecified right bundle-branch block
CPT/HCPCS: 0241U-QW; 36415; 71045-TC-FY; 80048; 80053; 81003; 82803; 82962; 83036; 83605; 83735; 83880; 84100; 84484; 85025; 85027; 85610; 85730; 86850; 86900; 86901; 87040; 87086; 90677; 93005; 93010; 93306-TC; 99285-25; G0378